=== PATIENT | female | born 1935 | race Caucasian/White ===

== ENCOUNTER 2016-10-24 11:16 | Emergency (ER) | payer MEDICARE, BC ==
[~2016-10-24] VITALS: Ht 157.5 cm; Wt 86.3 kg
[2016-10-24 11:18] VITALS: BP 124/83; PULSE 94; RESP 24; TEMP 97.7; O2SAT 87
[2016-10-24 11:28] VITALS: BP 210/84; PULSE 59; RESP 18; TEMP 97.5; O2SAT 96
--- NOTE | 2016-10-24 11:46 | PD ---
HPI Chief Complaint: Fall Time Seen by Provider: 11:42 Travel History International Travel<30 days: No Contact w/Intl Traveler<30days: No Traveled to known affect area: No History of Present Illness HPI 81-year-old female presents the emergency department status post fall. She was brought in by EMS. She has a splint with reports of deformity on the right elbow forearm. Patient states she was walking on uneven pavement and fell forward landing on her hand and causing right arm pain. Right knee pain and abrasion to the left hand. Patient denies hitting her head, neck pain , or loss of consciousness. She has a abrasions to both bases of both palms. Patient is visiting from outside the [facility]. She is allergic to codeine. She received morphine via EMS with an IV in the left arm. Pain is currently controlled. PFSH Past Medical History High Cholesterol: Yes Thyroid Disease: Yes (HYPO) Past Surgical History Appendectomy: Yes Cholecystectomy: Yes Hysterectomy: Yes Social History Alcohol Use: Yes (OCCASSIONAL) Tobacco Use: No Substance Use: No Allergies-Medications (Allergen,Severity, Reaction): Coded Allergies: Codeine (Verified Allergy, Severe, Nausea/Vomiting, 10/24/16) Reported Meds & Prescriptions Reported Meds & Active Scripts Active Zofran (Ondansetron HCl) 4 Mg Tab 4 Mg PO Q6HR PRN Lortab (Hydrocodone-Acetaminophen) 5-325 Mg Tab 1-2 Tab PO Q6H PRN Review of Systems Except as stated in HPI: all other systems reviewed are Neg General / Constitutional: No: Fever Eyes: No: Visual changes HENT: No: Headaches Cardiovascular: No: Chest Pain or Discomfort Respiratory: No: Shortness of Breath Gastrointestinal: No: Abdominal Pain Genitourinary: No: Dysuria Musculoskeletal: Positive: Limited ROM, Pain (see history of present illness) Skin: No Rash Neurologic: No: Weakness Psychiatric: No: Depression Endocrine: No: Polydipsia Hematologic/Lymphatic: No: Easy Bruising Physical Exam Narrative GENERAL: Patient appears in mild to moderate distress. SKIN: Warm and dry. Normal color. Normal turgor. Patient has a small abrasion to the base of the right palm, and a very small abrasion/ecchymosis to the base of the left palm. HEAD: Atraumatic. Normocephalic. Nontender. EYES: Pupils equal and round. No scleral icterus. No injection or drainage. ENT: No nasal bleeding or discharge. Mucous membranes pink and moist. Pharynx is clear. No dental injury. Airway is patent. NECK: Trachea midline. No bony tenderness or step-off. Supple nontender. CARDIOVASCULAR: Regular rate and rhythm. No murmurs gallops or rubs. RESPIRATORY: No accessory muscle use. Clear to auscultation. Breath sounds equal bilaterally. GASTROINTESTINAL: Abdomen soft, non-tender, nondistended. Hepatic and splenic margins not palpable. MUSCULOSKELETAL: Extremities without clubbing, cyanosis, or edema. Patient is swelling over the proximal lateral right forearm without skin tenting or obvious deformity. Patient has normal neurovascular exam distal to the right elbow. [employer] strength is maintained although limited by pain. Patient is able to extend the elbow almost completely, although limited by pain. Supination and pronation is very limited secondary to pain in the forearm. NEUROLOGICAL: Awake and alert. No obvious cranial nerve deficits. Motor grossly within normal limits. Five out of 5 muscle strength in the arms and legs. Normal speech. PSYCHIATRIC: Appropriate mood and affect; insight and judgment normal. Data Data Last Documented VS Vital Signs Date Time Temp Pulse Resp B/P Pulse Ox O2 Delivery O2 Flow Rate FiO2 10/24/16 12:20 96 Room Air 10/24/16 11:31 59 18 10/24/16 11:28 97.5 210/84 Orders Complete Blood Count With Diff (10/24/16 11:46) Comprehensive Metabolic Panel (10/24/16 11:46) Prothrombin Time / Inr (Pt) (10/24/16 11:46) Act Partial Throm Time (Ptt) (10/24/16 11:46) Oximetry (10/24/16 11:46) NPO (10/24/16 11:46) Ondansetron Inj (Zofran Inj) (10/24/16 12:00) Sodium Chloride 0.9% Flush (Ns Flush) (10/24/16 12:00) Chest, Single Ap (10/24/16 11:46) Elbow, Complete (4 Vws) (10/24/16 11:46) Forearm (2vws) (10/24/16 11:46) Ice/Cold Pack (10/24/16 11:46) Wound Care (10/24/16 12:50) Splint Or Brace Apply/Monitor (10/24/16 12:50) Radiology Film Requests (10/24/16 ) Labs Laboratory Tests Test 10/24/16 11:56 White Blood Count 7.8 TH/MM3 Red Blood Count 4.09 MIL/MM3 Hemoglobin 12.6 GM/DL Hematocrit 37.1 % Mean Corpuscular Volume 90.8 FL Mean Corpuscular Hemoglobin 30.9 PG Mean Corpuscular Hemoglobin 34.0 % Concent Red Cell Distribution Width 13.3 % Platelet Count 217 TH/MM3 Mean Platelet Volume 10.5 FL Neutrophils (%) (Auto) 64.9 % Lymphocytes (%) (Auto) 24.9 % Monocytes (%) (Auto) 8.5 % Eosinophils (%) (Auto) 1.1 % Basophils (%) (Auto) 0.6 % Neutrophils # (Auto) 5.1 TH/MM3 Lymphocytes # (Auto) 1.9 TH/MM3 Monocytes # (Auto) 0.7 TH/MM3 Eosinophils # (Auto) 0.1 TH/MM3 Basophils # (Auto) 0.0 TH/MM3 CBC Comment DIFF FINAL Differential Comment Prothrombin Time 10.4 SEC Prothromb Time International 0.9 RATIO Ratio Activated Partial 26.0 SEC Thromboplast Time Sodium Level 143 MEQ/L Potassium Level 4.5 MEQ/L Chloride Level 110 MEQ/L Carbon Dioxide Level 26.4 MEQ/L Anion Gap 7 MEQ/L Blood Urea Nitrogen 17 MG/DL Creatinine 0.86 MG/DL Estimat Glomerular Filtration 64 ML/MIN Rate Random Glucose 92 MG/DL Calcium Level 8.8 MG/DL Total Bilirubin 0.4 MG/DL Aspartate Amino Transf 26 U/L (AST/SGOT) Alanine Aminotransferase 26 U/L (ALT/SGPT) Alkaline Phosphatase 105 U/L Total Protein 6.3 GM/DL Albumin 3.4 GM/DL [facility] Medical Decision Making Medical Screen Exam Complete: Yes Emergency Medical Condition: Yes Differential Diagnosis Fall on outstretched hands. Right elbow fracture. Right forearm fracture. Abrasions. Contusions. Narrative Course Patient is medically stable at time of exam. X-rays of the right elbow and forearm are ordered. Patient is made nothing by mouth. Chest x-ray is ordered as well. Basic labs ordered including CBC, CMP, PT PTT and INR. Patient is not requesting further pain medication at time of exam. X-ray of the forearm is unremarkable. X-ray of the elbow shows a radial head fracture nondisplaced. There is a large effusion of the joint. Patient will be placed in a shoulder sling. Chest x-ray is unremarkable. Labs are unremarkable as well. Patient is given 4 mg Zofran IV. Abrasions are cleaned and dressed. Patient be discharged home with sling, ice pack, and a prescription for Lortab 5 /325 one every 6 hours when necessary pain. #20. Patient also given Zofran 4 mg one every 6 hours when necessary nausea. #12. Copies of the x-rays are obtained and given to the patient. Patient follow with her primary care/orthopedic upon return to [place]. Patient may return the emergency Department with any worsening symptoms as necessary. Diagnosis Primary Impression: Fall (on)(from) sidewalk curb, initial encounter Additional Impressions: Right radial head fracture Qualified Code: S52.124A - Closed nondisplaced fracture of head of right radius, initial encounter Abrasion hand Referrals: Orthopedist call for appointment Patient Instructions: Elbow Fracture in Adults (DC), General Instructions, How to Use a Sling (GEN), Narcotic given in the ED Med/Other Pt SpecificInfo: Prescription(s) given Scripts Ondansetron (Zofran)4 Mg Tab4 Mg PO Q6HR PRN (NAUSEA OR VOMITING) #12 TAB Prov:Gerald Gaona MD 10/24/16 Hydrocodone-Acetaminophen (Lortab)5-325 Mg Tab1-2 Tab PO Q6H PRN (PAIN) #20 TAB Prov:Gerald Gaona MD 10/24/16 Disposition: 01 DISCHARGE HOME Condition: Stable Dixon Fortune Oct 24, 2016 11:46
[2016-10-24] MEDS ORDERED: ONDANSETRON HCL 4 MG/2 ML VIAL IVP ONE (12:00)
[2016-10-24] MEDS ORDERED: SODIUM CHLORIDE 0.9% FLUSH 5 ML FLUSH IVF PRN (12:00)
[2016-10-24 12:20] VITALS: O2SAT 96
--- NOTE | 2016-10-24 12:28 | RADRPT ---
EXAM DATE/TIME: 10/24/2016 12:18 [facility] COMPARISON: No previous studies available for comparison. INDICATIONS : Evaluate for trauma, fell Cough MEDICAL HISTORY : None. SURGICAL HISTORY : None. ENCOUNTER: Initial ACUITY: 1 day PAIN SCORE: 0/10 LOCATION: Bilateral chest FINDINGS: A single view of the chest demonstrates the lungs to be symmetrically aerated without evidence of mas s, infiltrate or effusion. The cardiomediastinal contours are unremarkable. Osseous structures are intact. CONCLUSION: No acute disease. Gurinder Cherry Jr., MD on October 24, 2016 at 12:26 Board Certified Radiologist. This report was verified electronically.
[2016-10-24 12:35] LABS: AUTOMATED NEUTROPHIL # 5.1 TH/MM3 (1.8-7.7); BASOPHIL % 0.6 % (0.0-2.0); EOSINOPHIL # 0.1 TH/MM3 (0-0.4); EOSINOPHIL % 1.1 % (0.0-4.0); HEMATOCRIT 37.1 % (35.0-46.0); HEMO FLAGS DIFF FINAL; LYMPH % 24.9 % (9.0-44.0); LYMPHOCYTE # 1.9 TH/MM3 (1.0-4.8); MEAN CELL VOLUME 90.8 FL (80.0-100.0); MEAN CORPUSCULAR HEMOGLOBIN 30.9 PG (27.0-34.0); MONO % 8.5 % (0.0-8.0); NEUT % 64.9 % (16.0-70.0); PLATELET COUNT 217 TH/MM3 (150-450); RED BLOOD COUNT 4.09 MIL/MM3 (4.00-5.30); RED CELL DISTRIBUTION WIDTH 13.3 % (11.6-17.2); WHITE BLOOD COUNT 7.8 TH/MM3 (4.0-11.0)
--- NOTE | 2016-10-24 12:36 | RADRPT ---
EXAM DATE/TIME: 10/24/2016 12:21 [facility] COMPARISON: No previous studies available for comparison. INDICATIONS : Right elbow pain, fell MEDICAL HISTORY : None. SURGICAL HISTORY : None. ENCOUNTER: Initial ACUITY: 1 day PAIN SCORE: 10/10 LOCATION: Right Elbow FINDINGS: 4 views of the elbow reveal an acute fracture involving the radial head. There is extension to the ar ticular surface. No significant distraction or angulation. The ulna is intact. A large joint effusion . CONCLUSION: Acute radial head fracture with large joint effusion. Gurinder Cherry Jr., MD on October 24, 2016 at 12:34 Board Certified Radiologist. This report was verified electronically.
--- NOTE | 2016-10-24 12:36 | RADRPT ---
EXAM DATE/TIME: 10/24/2016 12:20 [facility] COMPARISON: No previous studies available for comparison. INDICATIONS : Right proximal forearm pain, fell MEDICAL HISTORY : None. SURGICAL HISTORY : None. ENCOUNTER: Initial ACUITY: 1 day PAIN SCORE: 10/10 LOCATION: Right Forearm FINDINGS: Two view examination of the right forearm demonstrates no evidence of fracture or dislocation. Bony mineralization is normal. The soft tissue structures are intact. See the elbow dictated separately. CONCLUSION: Unremarkable examination of the right forearm. See the elbow dictated separately. Gurinder Cherry Jr., MD on October 24, 2016 at 12:27 Board Certified Radiologist. This report was verified electronically.
[2016-10-24 12:37] LABS: INTERNATIONAL NORMALIZED RATIO 0.9 RATIO; PROTHROMBIN TIME - PATIENT 10.4 SEC (9.8-11.6)
[2016-10-24 12:47] LABS: ALKALINE PHOSPHATASE 105 U/L (45-117); TOTAL BILIRUBIN ADULT 0.4 MG/DL (0.2-1.0)
[2016-10-24 12:50] LABS: ALT (GPT) 26 U/L (10-53); ANION GAP 7 MEQ/L (5-15); AST (GOT) 26 U/L (15-37); BICARBONATE 26.4 MEQ/L (21.0-32.0); BLOOD UREA NITROGEN 17 MG/DL (7-18); CHLORIDE 110 MEQ/L (98-107); GLOMERULAR FILTRATION RATE 64 ML/MIN (>89); POTASSIUM 4.5 MEQ/L (3.5-5.1); SODIUM (NA) 143 MEQ/L (136-145)
[2016-10-24] MEDS ORDERED: ZOFR4TAB PO (12:54)
[2016-10-24] MEDS ORDERED: HYDR-3533 PO (12:54)
[2016-10-24 13:17] VITALS: BP 193/78
[2016-10-24] MEDS ORDERED: ONDANSETRON ODT 4 MG TAB PO ONE (13:30)
== END 2016-10-24 13:52 | disposition home or self-care (01) ==
LOC: NEDAMB 11:16
DX: S52.124A Nondisplaced fracture of head of right radius, initial encounter for closed fracture (principal); M25.421 Effusion, right elbow; S60.512A Abrasion of left hand, initial encounter; S60.511A Abrasion of right hand, initial encounter; M25.561 Pain in right knee; E78.00 Pure hypercholesterolemia, unspecified; E07.9 Disorder of thyroid, unspecified; W18.39XA Other fall on same level, initial encounter; Y93.01 Activity, walking, marching and hiking
CPT/HCPCS: 71010; 73080; 73090; 80053; 85025; 85610; 85730; 96374; 99284; J2405